=== PATIENT | male | born 1965 | race Caucasian/White ===

== ENCOUNTER 2023-06-29 09:25 | Day surgery (SDC) | payer OTHER, SELFPAY ==
--- NOTE | 2023-06-29 | PATH_ITS ---
[facility] Accession Number: [id number] No. of containers..01 Tissue . 01 Material submitted: . colon - TRANSVERSE POLYP . 01 Diagnosis: COLON, TRANSVERSE, POLYP BIOPSY: - Tubular adenoma TXN 07/02/2023 1021 Local . 01 Electronically signed: . Payton Oconnor MD, Pathologist NPI- [id number] . 01 Gross description: . TRANSVERSE POLYP: Received in formalin is 1 fragment(s) of ariza, soft tissue measuring 1.0 x 1.0 x 0.1 cm submitted entirely in 1 cassette(s) /AAY 07/01/2023 0533 Local . 01 Pathologist provided ICD-10: Z12.11 . 01 CPT . 663743 Specimen Comment: A courtesy copy of this report has been sent to [phone] Performed at: 01 [facility] [address] [place] [address], [place], [place] [id number] MD Andi Choi MD Phone: [phone]
[2023-06-29 09:40] VITALS: BP 158/95; PULSE 99; RESP 18; TEMP 36.6; O2SAT 99; BMI 27.1
[2023-06-29] MEDS: LACTATED RINGERS 1,000 ML 42 ML IV (09:48)
--- NOTE | 2023-06-29 10:57 | PM.HP.1 ---
History of Present Illness History of Present Illness Date Patient Seen: 06/29/23 Time Patient Seen: 10:57 Chief complaint: SDC Narrative: The patient presents for colorectal screening. They have never had any previous examination for such. No personal or family history of colon cancer. On further history denies any recent gastrointestinal symptoms. No nausea, vomiting, abdominal pain, loss of appetite, unexplained weight loss, change in bowel habits, or blood per rectum. [facility], [facility] Social History household members: spouse Smoking Status: Never smoker alcohol intake: current Meds Home Medications and Allergies Home Medications Medication Instructions Recorded Confirmed Type Flonase 1 puff inhalation DAILY 06/29/23 06/29/23 History albuterol sulfate 90 mcg/actuation 2 puff inhalation Q4-6H PRN asthma 06/29/23 06/29/23 History aerosol inhaler atorvastatin 40 mg tablet 40 mg PO DAILY 06/29/23 06/29/23 History fluticasone 250 mcg-salmeterol 50 1 ea inhalation BID 06/29/23 06/29/23 History mcg/dose blistr powdr for inhalation (Advair Diskus) montelukast 10 mg tablet 10 mg PO DAILY 06/29/23 06/29/23 History omeprazole 40 mg capsule,delayed 40 mg PO DAILY 06/29/23 06/29/23 History release Allergies Allergy/AdvReac Type Severity Reaction Status Date / Time cefaclor [From Ceclor] Allergy Hives Verified 06/29/23 09:36 Sulfa (Sulfonamide Allergy Hives Verified 06/29/23 09:36 Antibiotics) Exam Vital Signs (past 8 hours): - 06/29/23 09:40 Temperature 97.8 F Pulse Rate 99 H Respiratory Rate 18 Blood Pressure 158/95 H Pulse Oximetry 99 Oxygen Delivery Method Room Air Oxygen Delivery Method Room Air Narrative Exam Narrative: General adult man alert oriented no acute distress Assessment & Plan Assessment & Plan narrative: The patient requires colorectal screening and colonoscopy is recommended. Technical details were discussed. Risks, benefits, alternatives explained. Risks including but not limited to myocardial infarction, aspiration, bleeding, pain, missed lesion, incomplete examination, need for further radiographic studies, colonic perforation, and need for major abdominal surgery were discussed. All questions were answered to their satisfaction, and they are in agreement with this plan.
[2023-06-29 11:28] VITALS: BP 140/88; PULSE 87; RESP 96; TEMP 36.3; O2SAT 95
--- NOTE | 2023-06-29 11:32 | PM.OP.COLON ---
Operative Date/Time/Diagnoses Date of procedure: 06/29/23 Time of procedure: 11:32 Pre-op diagnosis: Colorectal screening Post-op diagnosis: other (Colonic polyp x1) Procedure & Clinicians Study performed: Colonoscopy and polypectomy Same procedure as scheduled: Yes Indications: Colorectal screening Surgeon: Bon Figueroa Procedure Notes Procedure in detail: The history and physical was performed/updated and the patient is ASA class is 2. The procedure was discussed in detail with the patient. Potential risks complications including infection, bleeding, missed diagnosis, perforation, need for surgery, and were explained. Their questions were answered and informed consent was obtained. Patient was brought to the procedure room and placed standard monitoring equipment. The patient's vital signs were monitored continuously throughout the entire procedure. Prior to starting time-out was performed. The patient was placed in the left lateral recumbent position. Procedural sedation was administered by anesthesia. Examination began with a thorough inspection of the perianal area there was no evidence of fissures, fistulae, external hemorrhoids or cutaneous malignancy. The colonoscopy scope was then placed into the anal canal and was advanced to the cecum, which was identified by the ileocecal valve, the appendiceal orifice and the confluence of the taenia. The scope was then slowly withdrawn examining colon thoroughly in all directions, irrigating it of any residual stool. Transverse colon-8 mm polyp removed with cold snare. Remainder of the colon is unremarkable. The patient tolerated the procedure well. They will be discharged once criteria are met. The prep was of good/excellent quality. The withdrawl time was 6 minutes. Specimen(s): other (Transverse colon polyp) Complications: none Impression: Colonic polyp x1 Post-procedure Plan for aftercare: Follow-up is dependent on pathology findings. Likely 5 years. Disposition: same day surgery
[2023-06-29 11:33] VITALS: BP 127/84; PULSE 88; RESP 12; O2SAT 98
[2023-06-29 11:38] VITALS: BP 132/87; PULSE 83; RESP 16; O2SAT 95
[2023-06-29 11:44] VITALS: BP 128/80; PULSE 75; RESP 18; TEMP 36.1; O2SAT 98
== END 2023-06-29 12:08 | disposition home or self-care (01) ==
PROVIDERS: PCP Family Medicine; Referring Provider Surgery; Visit Provider Surgery
PROC: 0DJD8ZZ Inspection of Lower Intestinal Tract, Via Natural or Artificial Opening Endoscopic (ICD-10-PCS; CPT 45378; principal; 2023-06-29 10:30)
DX: Z12.11 Encounter for screening for malignant neoplasm of colon (principal); D12.3 Benign neoplasm of transverse colon
CPT/HCPCS: 45385; J2704